=== PATIENT | female | born 1975 | race Caucasian/White ===

== ENCOUNTER 2017-06-25 07:30 | Inpatient (IN) | payer MEDICAID ==
[2017-06-29] MEDS ORDERED: Scopolamine 1.5 MG Transdermal Patch TOP ONE (06:21)
[2017-06-29] MEDS ORDERED: Acetaminophen 500 MG Tab PO ONE (06:22)
[2017-06-29] MEDS ORDERED: Celecoxib 200 MG Cap PO ONE (06:23)
[2017-06-29] MEDS ORDERED: Gabapentin 300 MG Cap PO ONE (06:24)
[2017-06-29] MEDS ORDERED: Dextrose 5%-Lactated Ringers 1,000 ML IV SCH (06:30)
[2017-06-29] MEDS ORDERED: cefOXitin 2 GM Vial ONE (06:54)
[2017-06-29] MEDS ORDERED: Albuterol/Ipratropium 3.0-0.5 MG/3 ML Neb Soln NEB ONE (07:00)
[2017-06-29] MEDS ORDERED: Propofol 200 MG/20 ML SDV ONE (07:10)
[2017-06-29] MEDS ORDERED: Neostigmine Methylsulfate 1 MG/ML 5 ML Syringe ONE (07:10)
[2017-06-29] MEDS ORDERED: Rocuronium 50 MG/5 ML Vial ONE (07:10)
[2017-06-29] MEDS ORDERED: fentaNYL 250 MCG/5 ML SDV ONE ×2 (07:10→07:43)
[2017-06-29] MEDS ORDERED: Succinylcholine/Normal Saline 200 MG/10 ML Syringe ONE (07:10)
[2017-06-29] MEDS ORDERED: Dexamethasone 4 MG/ML SDV ONE (07:10)
[2017-06-29] MEDS ORDERED: Lactated Ringers 1,000 ML ONE (07:14)
[2017-06-29] MEDS ORDERED: Lidocaine 2% 100 MG/5 ML Syringe IVPUSH ONE (07:15)
[2017-06-29] MEDS ORDERED: Ketamine 500 MG/5 ML MDV IV SCH (07:15)
[2017-06-29] MEDS ORDERED: cefOXitin 2 GM in Sodium Chloride 0.9% 50 ML IV ONE (07:15)
[2017-06-29] MEDS ORDERED: Ropivacaine 55 ML, Dexamethasone 8 MG, EPINEPHrine 0.4 MG, Sodium Chloride 0.9% 22.6 ML NERVRT SCH ×4 (07:15)
[2017-06-29] MEDS ORDERED: cefOXitin 2 GM in Sodium Chloride 0.9% 100 ML IV ONE (07:15)
[2017-06-29] MEDS ORDERED: hydrOXYzine HCl 100 MG/2 ML SDV IM ONE (08:47)
[2017-06-29] MEDS ORDERED: fentaNYL 100 MCG/2 ML SDV IVPUSH ONE (09:29)
[2017-06-29] MEDS ORDERED: Insulin Aspart 100 Units/ML 3 ML Pen SUBCUT ONE (09:30)
[2017-06-29] MEDS: Prochlorperazine 10 MG/2 ML SDV IVPUSH PRN ×2 (10:14→17:12)
[2017-06-29] MEDS ORDERED: Albuterol/Ipratropium 3.0-0.5 MG/3 ML Neb Soln INH PRN (11:47)
[2017-06-29] MEDS: Lidocaine 0.4%/D5W 2 GM/500 ML BAG IV SCH (11:54)
[2017-06-29] MEDS: CHECK SCOPOLAMINE PATCH DAILY TOP SCH (11:58)
[2017-06-29] MEDS ORDERED: SCOPOLAMINE PATCH CHECK TOP SCH (12:00)
[2017-06-29] MEDS ORDERED: Labetalol 20 MG/4 ML Syringe IVPUSH PRN (12:00)
[2017-06-29] MEDS ORDERED: diphenhydrAMINE 50 MG/ML SDV IVPUSH PRN (12:00)
[2017-06-29] MEDS ORDERED: Pantoprazole 40 MG Vial IVPUSH SCH (12:30)
[2017-06-29] MEDS: cefOXitin 2 GM in Sodium Chloride 0.9% 50 ML IV SCH ×2 (12:34→18:16)
[2017-06-29] MEDS: Acetaminophen Soln 650 MG/20.3 ML UD Cup PO SCH ×3 (12:35→23:00)
[2017-06-29] MEDS: Gabapentin 250 MG/5 ML Solution ML 470 ML Bottle PO SCH ×2 (14:09→21:18)
[2017-06-29] MEDS: Dextrose 5%-Lactated Ringers 1,000 ML IV SCH (14:10)
[2017-06-29] MEDS: Albuterol/Ipratropium 3.0-0.5 MG/3 ML Neb Soln INH SCH ×2 (14:43→21:18)
[2017-06-29] MEDS ORDERED: MVI, Adult with Vitamin K 10 ML, Thiamine 200 MG, Chromium/Copper/Mang/Selen/Zn 1 ML in... IV SCH ×4 (16:00)
[2017-06-29] MEDS: Insulin Aspart 100 Units/ML 3 ML Pen SUBCUT PRN ×2 (17:12→22:46)
[2017-06-29] MEDS: Heparin Sodium 5,000 Units/ML Vial SUBCUT SCH (18:16)
[2017-06-29] MEDS: hydrOXYzine HCl 100 MG/2 ML SDV IM PRN (19:55)
[2017-06-30] MEDS: Lidocaine 0.4%/D5W 2 GM/500 ML BAG IV SCH (00:54)
[2017-06-30] MEDS: cefOXitin 2 GM in Sodium Chloride 0.9% 50 ML IV SCH ×2 (00:55→05:34)
[2017-06-30] MEDS: Dextrose 5%-Lactated Ringers 1,000 ML IV SCH ×2 (00:55→07:30)
[2017-06-30] MEDS ORDERED: Iohexol 647 MG/ML 50 ML SDV PO STA (01:03)
[2017-06-30] MEDS: hydrOXYzine HCl 100 MG/2 ML SDV IM PRN (03:20)
[2017-06-30] MEDS: Insulin Aspart 100 Units/ML 3 ML Pen SUBCUT PRN (05:21)
[2017-06-30] MEDS: Heparin Sodium 5,000 Units/ML Vial SUBCUT SCH ×2 (05:21→18:15)
[2017-06-30] MEDS: Acetaminophen Soln 650 MG/20.3 ML UD Cup PO SCH ×4 (05:21→23:21)
[2017-06-30] MEDS: Albuterol/Ipratropium 3.0-0.5 MG/3 ML Neb Soln INH SCH ×4 (07:03→21:44)
[2017-06-30] MEDS: Celecoxib 200 MG Cap PO SCH (07:33)
[2017-06-30] MEDS ORDERED: Ondansetron 4 MG Tab.DIS PO PRN (07:56)
[2017-06-30] MEDS ORDERED: ClonazePAM 1 MG Tab PO PRN (07:58)
[2017-06-30] MEDS ORDERED: Mirtazapine 15 MG Tab PO PRN (07:58)
[2017-06-30] MEDS ORDERED: Zolpidem 5 MG Tab PO PRN (07:58)
[2017-06-30] MEDS ORDERED: Lactated Ringers 1,000 ML IV SCH (08:00)
[2017-06-30] MEDS: CHECK SCOPOLAMINE PATCH DAILY TOP SCH (08:25)
--- NOTE | 2017-06-30 08:46 | CR ---
Findings: Status post Adrian-en-Y. No dilated loops of large or small bowel.
[2017-06-30] MEDS: amLODIPine 5 MG Tab PO SCH (08:48)
[2017-06-30] MEDS: FLUoxetine 20 MG Cap PO SCH (08:48)
[2017-06-30] MEDS: Docusate Sodium 100 MG Cap PO SCH ×2 (08:48→21:43)
[2017-06-30] MEDS: Gabapentin 250 MG/5 ML Solution ML 470 ML Bottle PO SCH ×3 (08:48→21:47)
--- NOTE | 2017-06-30 09:47 | PN ---
DATE OF SERVICE: 06/30/2017 SUBJECTIVE: Sherrie is postop day #1 following a Adrian-en-Y gastric bypass surgery. Her upper GI this morning was normal. Blood sugars have been 257, 242, and 215. GLORIA drain put out 95 mL of a pink serosanguineous drainage. Pain has been controlled. She has been up, ambulating. REVIEW OF SYSTEMS: Remainder of review of systems negative for any pertinent positives and negatives. OBJECTIVE: GENERAL: Sherrie Emmanuel is a 42-year-old female. VITAL SIGNS: TPR is 99.3, 121, 16. Blood pressure 119/71. HEENT: Negative. NECK: Supple. HEART: Regular rate and rhythm. LUNGS: Clear. ABDOMEN: Dressings dry and intact. GLORIA drain as above. Abdominal binder is on. EXTREMITIES: Without peripheral edema. ASSESSMENT: Laparoscopic Adrian-en-Y gastric bypass surgery. PLAN: 1. Change IV to lactated Ringer's at 100 mL per hour. 2. Discontinue D5LR IV. 3. Colace 100 mg p.o. b.i.d. 4. Dressing off, may shower. 5. Step-2 gastric bypass diet without cereal. 6. Communication order to drink 3 med cups per hour, record at bedside. 7. Home medications were started; Norvasc 5 mg p.o. daily; Prozac 20 mg p.o. daily; mirtazapine, Remeron 15 mg p.o. bedtime p.r.n.; and Ambien 5 mg p.o. bedtime. 8. We will evaluate p.r.n. or in the a.m. Neela Spicer PA-C /[id number]
[2017-06-30] MEDS: Pantoprazole 40 MG Delayed-Release Granules 1 Packet PO SCH (12:04)
[2017-06-30] MEDS ORDERED: MVI, Adult with Vitamin K 10 ML, Thiamine 200 MG, Chromium/Copper/Mang/Selen/Zn 1 ML in... IV SCH ×4 (16:00)
[2017-06-30] MEDS ORDERED: Magnesium Hydroxide 400 MG/5 ML Susp 30 ML Cup PO PRN (19:08)
[2017-07-01] MEDS: Acetaminophen Soln 650 MG/20.3 ML UD Cup PO SCH ×2 (04:59→12:59)
[2017-07-01] MEDS: Heparin Sodium 5,000 Units/ML Vial SUBCUT SCH (04:59)
[2017-07-01] MEDS: Albuterol/Ipratropium 3.0-0.5 MG/3 ML Neb Soln INH SCH ×3 (07:18→15:44)
[2017-07-01] MEDS: Docusate Sodium 100 MG Cap PO SCH (08:46)
[2017-07-01] MEDS: Celecoxib 200 MG Cap PO SCH (08:46)
[2017-07-01] MEDS: Gabapentin 250 MG/5 ML Solution ML 470 ML Bottle PO SCH ×2 (08:46→14:28)
[2017-07-01] MEDS: amLODIPine 5 MG Tab PO SCH (08:48)
[2017-07-01] MEDS: FLUoxetine 20 MG Cap PO SCH (08:49)
[2017-07-01] MEDS ORDERED: Cyanocobalamin (Vitamin B12) 1,000 MCG/ML SDV IM ONE (09:00)
[2017-07-01] MEDS: Pantoprazole 40 MG Delayed-Release Granules 1 Packet PO SCH (12:59)
--- NOTE | 2017-07-02 07:59 | DISCH ---
ADMISSION DIAGNOSES: 1. Morbid obesity, BMI 54. 2. Diabetes, type 2. 3. Moderate persistent asthma. 4. Seasonal allergies. 5. Recurrent major depression disorder. 6. Insomnia. 7. Hypertension. 8. Gastroesophageal reflux disease. 9. Panic disorder. 10.Personality disorder. DISCHARGE DIAGNOSES: Laparoscopic Adrian-en-Y gastric bypass surgery, liver biopsy, repair of diaphragmatic hernia for morbid obesity, hepatomegaly, and diaphragmatic hernia. HISTORY: Sherrie Emmanuel is a 42-year-old female with longstanding history of morbid obesity and increase in the comorbidities. After preoperative evaluation and discussion of possible risks and possible complications, she wished to proceed with surgical procedure. HOSPITAL COURSE: Sherrie had her surgery on 06/29/2017. She had no operative complications. On postoperative day #1, she was started on a step-2 gastric bypass diet without cereal. She received dietary instruction. Her activity was good. On postoperative day #2, she was able to be discharged home without any complications. Blood sugars prior to discharge were 107 and 106. She will be going home on no diabetic medications. PHYSICAL EXAMINATION: GENERAL: Sherrie Emmanuel is a 42-year-old female. VITAL SIGNS: Height 5 feet, weight 276. BMI 54. TPR 97.6, 104, 18, blood pressure 128/77. HEENT: Negative. NECK: Supple. HEART: Regular rate and rhythm. LUNGS: Clear. ABDOMEN: Incisions looked good. 4x4's over GLORIA drain site. Abdominal binder is on. EXTREMITIES: Without peripheral edema. DISPOSITION: Discharged to home. CONDITION: Stable and improving. FOLLOWUP APPOINTMENT: With Neela Spicer PA-C on 07/07/2017 at 10:00 a.m. at [place], [place]. HOME MEDICATIONS: 1. Tylenol 650 mg q.6 hours. 2. Celebrex 200 mg oral daily. 3. Fluoxetine 20 mg oral daily. 4. Mirtazapine 15 mg oral at bedtime as needed for sleep. 5. Omeprazole 40 mg daily. 6. Zolpidem 5 mg oral at bedtime. 7. Amlodipine besylate 5 mg oral daily. DISCHARGE INSTRUCTIONS: 1. Diet after discharge, step 2 gastric bypass diet with no cereal for 2 weeks until 07/14/2017. 2. Activity. No lifting greater than 10 pounds for 2 weeks. 3. Driving, not drive for 1 week. 4. Shower/bathing, may shower. Notify provider if any fever, increased pain, nausea, vomiting. Keep site clean and dry. Wear abdominal binder for 2 weeks. SPECIAL INSTRUCTIONS: 1. Use incentive spirometer 10 times every hour while awake for 2 weeks. 2. Check blood sugars twice a day. 3. Record of protein and liquid intake and bring to clinic appointments.
--- NOTE | 2017-07-06 12:32 | OR ---
DATE OF PROCEDURE: 06/29/2017 PREOPERATIVE DIAGNOSIS: Morbid obesity. POSTOPERATIVE DIAGNOSES: 1. Morbid obesity. 2. Marked hepatomegaly. 3. Paraesophageal diaphragmatic hernia. OPERATIVE PROCEDURE: 1. Laparoscopic Adrian-en-Y gastric bypass with long limb gastroenterostomy (31106). 2. Franco-Cut needle liver biopsy (83266). 3. Repair of paraesophageal diaphragmatic hernia (23081). ANESTHESIA: General. ASSISTANTS: Neela Spicer PA-C and BOOM Rodriguez3. INDICATIONS FOR PROCEDURE: This is a 42-year-old presenting with longstanding morbid obesity and increasingly significant comorbidities. After preoperative evaluation and discussion, she wished to proceed with a gastric bypass procedure. Potential risks of the procedure including bleeding, infection, leaks from various GI tract closures, problems with bowel obstruction over time, as well as possibility of cardiopulmonary, septic, or hemorrhagic complications leading to were all discussed, and the patient wishes to proceed. DESCRIPTION OF PROCEDURE: The patient was taken to the operating room. After general endotracheal anesthesia was induced, she was placed in a lithotomy position. The orogastric tube was then placed and the abdomen was prepped and draped. At 15 cm inferior, 5 cm left of xiphoid process, transverse incision was made. The peritoneal cavity was entered under direct vision with an Optiview trocar and inflated to 15 mmHg pressure with CO2. Laparoscope was then reinserted. No underlying trocar insertion site injuries were seen. Following this, bilateral subcostal transversus abdominis plane blocks were placed. Correct location of the needle tip was confirmed visually and the solutions deployed bilaterally without difficulty. At this point, 5 additional trocars were placed across the upper and mid abdomen and general exploration was undertaken. The patient was noted to have marked hepatomegaly with liver volume being roughly 2 to 3 times normal and liver grossly fatty infiltrated. Franco-Cut needle biopsies were obtained from the left lobe of the liver. Minimal bleeding from the biopsy sites was controlled with electrocautery. At this point, the omentum was divided in midline up to the level of the transverse colon. This allowed identification of small bowel at the ligament of Treitz. The small bowel was then traced out 150 cm distal to that point, was divided transversely with a SUSY stapler. Small bowel was then traced out additional 200 cm, where the [id number] enteroenterostomy was accomplished with internal firing of the Endo-SUSY 60 mm stapler. The common opening was then closed transversely with the same stapler and the angles anastomosed, and mesenteric defect approximated with some 0 Ethibond stitch along with fibrin sealant. The divided end of the Adrian limb was from the mesentery for a few centimeters, which allowed an antecolic positioning of the Adrian limb up to the level of the gastroesophageal junction without tension. The liver was then retracted anteriorly. The patient was noted to have a moderate-sized paraesophageal diaphragmatic hernia. This contained some perigastric fat and fundus of the stomach prolapsing in a plane anterior to the course of the esophagus. The hernia was then reduced and the peritoneum overlying incised and reflected downward. An anterior repair of the diaphragmatic hernia was then accomplished with some 0 Ethibond sutures reinforced with PTFE pledgets. The gastrointestinal balloon catheter was then inflated to 15 mL and pulled up snugly against the EG junction. Gastric wall over the apex balloon was then marked with electrocautery, and balloon catheter deflated and pulled up from the esophagus. The lesser omental tissue adjacent to the gastric cardia was incised allowing dissection behind the stomach at that level. Pouch formation was initiated with a transverse firing of the SUSY stapler at the level of the cauterized andrew on the gastric cardia and then completed with some additional SUSY stapler firings up to and through the angle of His. Upon completion of the pouch, both staple lines were noted to be intact. The anvil of a 25-mm EEA stapler was attached to a Linden sump-type tube, the latter was brought down through the mouth and taken out through a small opening in the gastric pouch, allowing the anvil likewise to be pulled down to within the gastric pouch. The divided end of the Adrian limb was then opened and main body of the EEA stapler passed several centimeters into the lumen of the small bowel, brought up the anvil and united with it, thus creating the gastrojejunostomy. Upon removal of the staple, double donuts of mucosa were noted within it, and the small bowel was closed off with a vascular staple line. Gastrojejunostomy was reinforced with some 3-0 Vicryl seromuscular stitch along with fibrin sealant. Leak test was accomplished with injection of 120 mL of air in the gastric pouch, while submerged with a cefoxitin-containing saline solution. No leaks were identified. Single Shreyas-Rodriguez drain was then placed adjacent to the gastrojejunostomy and from there up into the area of the splenic fossa with no further problems noted. Trocars were removed and peritoneal cavity was deflated. The skin was closed with some 4-0 Vicryl skin stitch and drain also affixed with 4-0 Vicryl stitch, and the patient was taken to the recovery room in a satisfactory condition. There were no evident complications. Physician assistant product manager, Neela Spicer, played an essential role in assisting in this case, helping to position the patient, retract structures as needed, as well as suturing and cutting sutures when indicated. Her presence improved patient's safety and decreased the operative time. Gage Pino MD /[id number]
== END 2017-07-01 15:45 | disposition home or self-care (01) | DRG 621 ==
LOC: JP.SDS 06-29 04:52 → EDSTATUS 06-29 07:15 → JP.MS 06-29 07:15 → JP.2SS 06-29 09:30 → JP.MS 06-29 11:16 → UNDOADMIN 06-29 11:16
PROVIDERS: ADMIT Surgery; ATTEND Surgery
PROC: 0D164ZA Bypass Stomach to Jejunum, Percutaneous Endoscopic Approach (ICD-10-PCS; principal; 2017-06-29)
PROC: 0FB24ZX Excision of Left Lobe Liver, Percutaneous Endoscopic Approach, Diagnostic (ICD-10-PCS; 2017-06-29)
PROC: 0BQT4ZZ Repair Diaphragm, Percutaneous Endoscopic Approach (ICD-10-PCS; 2017-06-29)
PROC: 3E0T3BZ Introduction of Anesthetic Agent into Peripheral Nerves and Plexi, Percutaneous Approach (ICD-10-PCS; 2017-06-29)
DX: E66.01 Morbid (severe) obesity due to excess calories (principal); Z68.43 Body mass index [BMI] 50.0-59.9, adult; E11.9 Type 2 diabetes mellitus without complications; K21.9 Gastro-esophageal reflux disease without esophagitis; F41.0 Panic disorder [episodic paroxysmal anxiety]; F60.9 Personality disorder, unspecified; G47.00 Insomnia, unspecified; Z88.8 Allergy status to other drugs, medicaments and biological substances; J45.40 Moderate persistent asthma, uncomplicated; Z91.09 Other allergy status, other than to drugs and biological substances; R16.0 Hepatomegaly, not elsewhere classified; K44.9 Diaphragmatic hernia without obstruction or gangrene; K76.0 Fatty (change of) liver, not elsewhere classified
CPT/HCPCS: 36415; 74240; 74240-26; 81025; 82962; 86850; 86900; 86901; 88304; 88307; 88313; 94640; A9270-GY; C9113; J0171; J0694; J0780; J1100; J1644; J2001; J2704; J2795; J3010; J3410; J3411; J3420; J7030; J7040; J7042; J7050; J7120; J7620; Q9967

== ENCOUNTER 2017-07-18 17:12 | Emergency (ER) | payer MEDICAID ==
[2017-07-18] MEDS ORDERED: Promethazine 12.5 MG in Sodium Chloride 0.9% 50 ML IV ONE (17:47)
--- NOTE | 2017-07-18 17:49 | EDM.PDOC ---
ED HPI GENERAL MEDICAL PROBLEM - General Chief Complaint: Gastrointestinal Problem Stated Complaint: NAUSEA Time Seen by Provider: 07/18/17 17:35 Source of Information: Reports: Patient History Limitations: Reports: No Limitations - History of Present Illness INITIAL COMMENTS - FREE TEXT/NARRATIVE: 42-year-old female who had a gastric bypass 1 month ago, is in because of persistent nausea and inability to take oral liquids and food. She says "everything comes up". She does admit that her pills are staying down however with some water. She was seen and worked up at [facility] in [place] on , they told her if she continues to have problems she should see her surgeon and today she felt like she was still struggling so came down here to be seen. She has no fevers or chills, no shortness of breath, no bowel changes such as diarrhea. She looks comfortable and is watching TV. Severity: Mild Associated Symptoms: Reports: Malaise, Nausea/Vomiting, Other (Abdominal pain). Denies: Chest Pain, Fever/Chills, Headaches, Shortness of Breath Upper Abdomen Pain Score (Numeric/FACES): 5 - Related Data Allergies Allergy/AdvReac Type Severity Reaction Status Date / Time bupropion [From Wellbutrin] Allergy Other Verified 07/18/17 17:38 ondansetron Allergy Other Verified 07/18/17 17:38 [From Zofran (as hydrochloride)] prednisone Allergy Other Verified 07/18/17 17:38 Home Meds: Home Meds Celecoxib [CeleBREX] 200 mg PO DAILY 06/25/17 [History] FLUoxetine HCl [Fluoxetine HCl] 20 mg PO DAILY 06/25/17 [History] Mirtazapine 15 mg PO BEDTIME PRN 06/25/17 [History] Omeprazole 40 mg PO DAILY 06/25/17 [History] Zolpidem Tartrate 5 mg PO BEDTIME PRN 06/25/17 [History] amLODIPine Besylate [Amlodipine Besylate] 5 mg PO DAILY 06/25/17 [History] clonazePAM [Klonopin] 1 mg PO BID PRN 06/25/17 [History] Acetaminophen [Tylenol] 650 mg PO Q6H cup 07/01/17 [Rx] Past Medical History HEENT History: Reports: Impaired Vision Other HEENT History: wears glasses Cardiovascular History: Reports: Hypertension, SOB on Exertion Respiratory History: Reports: Asthma Gastrointestinal History: Reports: GERD Genitourinary History: Reports: None [employer] History: Reports: Musculoskeletal History: Reports: Back Pain, Chronic Psychiatric History: Reports: Anxiety, Depression, Psych Hospitalization(s), Suicide Attempt Endocrine/Metabolic History: Reports: Diabetes, Type II, Obesity/BMI 30+ - Infectious Disease History Infectious Disease History: Reports: Other (See Below) Other Infectious Disease History: states unknown - Past Surgical History HEENT Surgical History: Reports: Oral Surgery Cardiovascular Surgical History: Reports: None Respiratory Surgical History: Reports: None GI Surgical History: Reports: Appendectomy, Cholecystectomy Female Surgical History: Reports: Section, Tubal Ligation Endocrine Surgical History: Reports: None Musculoskeletal Surgical History: Reports: None Dermatological Surgical History: Reports: None Social & Family History - Family History Family Medical History: Unobtainable - Tobacco Use Smoking Status *Q: Never Smoker - Caffeine Use Caffeine Use: Reports: None - Recreational Drug Use Recreational Drug Use: No ED ROS GENERAL - Review of Systems Review Of Systems: See Below Constitutional: Reports: Malaise. Denies: Fever, Chills HEENT: Reports: No Symptoms Respiratory: Denies: Shortness of Breath Cardiovascular: Denies: Chest Pain GI/Abdominal: Reports: Abdominal Pain, Nausea, Vomiting. Denies: Diarrhea : Reports: No Symptoms Skin: Reports: No Symptoms Neurological: Denies: Headache Psychiatric: Reports: Anxiety, Depression ED EXAM, GI/ABD - Physical Exam Exam: See Below Exam Limited By: No Limitations General Appearance: Alert, No Apparent Distress Eyes: Bilateral: Normal Appearance (Normal hydration, no jaundice) Throat/Mouth: Other (Mucosa looks normally hydrated) Head: Atraumatic Respiratory/Chest: No Respiratory Distress, Lungs Clear Cardiovascular: Regular Rate, Rhythm, Tachycardia (Mild tachycardia is present initially) GI/Abdominal Exam: Normal Bowel Sounds, Soft, Other (Surgical incisions are healing nicely) Extremities: No: Pedal Edema Neurological: Alert, Oriented Psychiatric: Flat Affect Skin Exam: Warm, Dry Course - Vital Signs Last Recorded V/S: Last Vital Signs Temp 97.5 F 07/18/17 17:34 Pulse 107 H 07/18/17 17:34 Resp 20 07/18/17 17:34 BP 128/61 07/18/17 17:34 Pulse Ox 95 03/17/18 17:34 - Orders/Labs/Meds Labs: Laboratory Tests 07/18/17 07/18/17 Range/Units 18:01 18:01 WBC 10.5 (4.5-11.0) K/uL RBC 4.66 (3.30-5.50) M/uL Hgb 13.2 (12.0-15.0) g/dL Hct 39.8 (36.0-48.0) % MCV 85 (80-98) fL MCH 28 (27-31) pg MCHC 33 (32-36) % Plt Count 377 (150-400) K/uL Neut % (Auto) 41 (36-66) % Lymph % (Auto) 40 (24-44) % Guadalupe % (Auto) 9 H (2-6) % Eos % (Auto) 11 H (2-4) % Baso % (Auto) 0 (0-1) % Sodium 142 (140-148) mmol/L Potassium 3.8 (3.6-5.2) mmol/L Chloride 106 (100-108) mmol/L Carbon Dioxide 26 (21-32) mmol/L Anion Gap 10.1 (5.0-14.0) mmol/L BUN 14 (7-18) mg/dL Creatinine 0.8 (0.6-1.0) mg/dL Est Cr Clr Drug Dosing 65.80 mL/min Estimated GFR (MDRD) > 60 (>60) Glucose 62 L (74-106) mg/dL Calcium 8.8 (8.5-10.1) mg/dL Meds: Medications Discontinued Medications Generic Name Dose Route Start Last Admin Trade Name [place] PRN Reason Stop Dose Admin Promethazine HCl 12.5 mg/ 50.5 mls @ 200 mls/hr 07/18/17 17:47 07/18/17 18:14 Sodium Chloride IV 07/18/17 18:02 200 mls/hr ONETIME ONE Administration Sodium Chloride 1,000 mls @ 1,000 mls/hr 07/18/17 18:00 07/18/17 18:13 Normal Saline IV 1,000 mls/hr ASDIRECTED JODIE Administration - Re-Assessments/Exams Free Text/Narrative Re-Assessment/Exam: 07/18/17 18:28 An IV was started, the patient was given 12.5 mg of IV Phenergan along with 1 L of normal saline. CBC and CMP were obtained. 07/18/17 18:40 Patient continued to rest quietly, all her labs were normal. I discussed her condition with Neela Spicer, and she would like her to follow up at her recent sick clinic visit in [place] on Thursday. This was relayed to the patient, and she was provided with 12 25 mg Phenergan to take orally 3 times a day for nausea and vomiting if needed. She can return sooner if worsening. Departure - Departure Time of Disposition: 19:33 Disposition: Home, Self-Care 01 Condition: Good Clinical Impression: Abdominal pain Nausea and vomiting Qualifiers: Vomiting type: unspecified Vomiting Intractability: non-intractable Qualified Code(s): R11.2 - Nausea with vomiting, unspecified - Discharge Information Instructions: Nausea and Vomiting, Adult Referrals: PCP,None [Primary Care Provider] - Forms: ED Department Discharge Care Plan Goals: Continue with frequent small amounts of fluid and food as recommended per your postsurgical diet. Use the Phenergan for nausea as prescribed. Recheck with Neela Spicer at the [place] clinic on Thursday, she will be expecting you. Recheck sooner if you feel you are worsening.
[2017-07-18] MEDS ORDERED: Sodium Chloride 0.9% 1,000 ML IV SCH (18:00)
== END 2017-07-18 19:33 | disposition home or self-care (01) ==
LOC: JP.ED 17:12
DX: R11.2 Nausea with vomiting, unspecified (principal); R10.10 Upper abdominal pain, unspecified; I10 Essential (primary) hypertension; E11.9 Type 2 diabetes mellitus without complications; K21.9 Gastro-esophageal reflux disease without esophagitis; Z88.8 Allergy status to other drugs, medicaments and biological substances; Z79.899 Other long term (current) drug therapy
CPT/HCPCS: 36415; 80048; 85025; 96365; 99284; J2550; J7040; J7050

== ENCOUNTER 2017-07-29 11:03 | Day surgery (SDC) | payer MEDICAID ==
[~2017-07-29 11:03] MED LIST: Midazolam 1 MG/ML 2 ML SDV ONE; Propofol 200 MG/20 ML SDV ONE; fentaNYL 100 MCG/2 ML SDV ONE
[2017-07-29] MEDS ORDERED: Lactated Ringers 1,000 ML IV ONE (11:30)
[2017-07-29] MEDS: Cyanocobalamin (Vitamin B12) 1,000 MCG/ML SDV IM ONE ×2 (12:08→12:17)
[2017-07-29] MEDS ORDERED: Glycopyrrolate 0.2 MG/ML 2 ML SDV IVPUSH ONE (12:30)
[2017-07-29] MEDS ORDERED: MVI, Adult with Vitamin K 10 ML, Thiamine 100 MG, Chromium/Copper/Mang/Selen/Zn 1 ML in... IV ONE ×4 (12:30)
[2017-07-29] MEDS ORDERED: Prochlorperazine 10 MG/2 ML SDV IV ONE (13:30)
[2017-07-29] MEDS ORDERED: Scopolamine 1.5 MG Transdermal Patch TOP SCH (13:30)
[2017-07-29] MEDS ORDERED: Metoclopramide 10 MG/2 ML SDV IV PRN (14:19)
[2017-07-29] MEDS ORDERED: Hyoscyamine 0.125 MG Tab.SL SL ONE (14:42)
[2017-07-29] MEDS ORDERED: VERIFY SCOP PATCH TOP SCH (16:00)
--- NOTE | 2017-07-30 14:44 | OR ---
DATE OF PROCEDURE: 07/29/2017 PREOPERATIVE DIAGNOSIS: Strictured gastrojejunostomy. POSTOPERATIVE DIAGNOSIS: Strictured gastrojejunostomy. OPERATIVE PROCEDURE: Upper GI endoscopy with dilation of gastrojejunostomy ([id number]). ANESTHESIA: IV sedation. INDICATION FOR PROCEDURE: This is a 42-year-old female presenting status post Adrian-en-Y gastric bypass on 06/29/2017, with symptoms suggestive of stricturing at her gastrojejunostomy. The plan is to proceed with an upper GI endoscopy with dilation as indicated. Potential risks including bleeding and perforation were discussed, and the patient wishes to proceed. DETAILS OF PROCEDURE: The patient was taken to the operating room and placed in a left lateral decubitus position. IV sedation was administered, after which the upper GI endoscope was passed orally through the length of the esophagus and into the gastric pouch. No retained food or fluid was noted. The patient was noted to have a fairly tight stricture at the gastrojejunostomy. A Bard gastrointestinal balloon catheter was centered across the anastomosis and inflated to 36-Belizean size. This was held in position for 1 minute, after which the balloon catheter was deflated and withdrawn. The scope could easily be then passed through the anastomosis. No complications were noted. The patient was taken to the recovery room in a satisfactory condition. In the recovery area, in [facility], the patient continued to complain of some dysphagia and was given a prescription for Levsin, as I suspected she was having some element of esophageal spasm at this point as well. Gage Pino MD /[id number]
== END 2017-07-29 15:15 | disposition home or self-care (01) ==
LOC: JP.SDS 11:03
PROVIDERS: ATTEND Surgery
DX: K95.89 Other complications of other bariatric procedure (principal); K21.9 Gastro-esophageal reflux disease without esophagitis; I10 Essential (primary) hypertension; F32.9 Major depressive disorder, single episode, unspecified; E66.01 Morbid (severe) obesity due to excess calories; E11.9 Type 2 diabetes mellitus without complications; Z88.8 Allergy status to other drugs, medicaments and biological substances
CPT/HCPCS: 43245; 81025; A9270; J0780; J2250; J2704; J2765; J3010; J3411; J3420; J7120; J3490